=== PATIENT | female | born 1950 | race Caucasian/White ===

== ENCOUNTER → 2020-04-01 15:27 | Emergency (ER) | payer OTHER | END | disposition home or self-care (01) | LOC: EDSTATUS 09:31 → EDUNIT# 15:27 → JP.ED 15:27 | DX: Z53.8 Procedure and treatment not carried out for other reasons (principal) ==

== ENCOUNTER 2020-04-01 15:40 | Emergency (ER) | payer OTHER, MEDICARE ==
[2020-04-01] MEDS ORDERED: Ketorolac 60 MG/2 ML SDV ONE (17:24)
--- NOTE | 2020-04-01 23:37 | CRLCR ---
Final Report: HISTORY: Fall. TECHNIQUE: Left humerus 2 views. COMPARISON: None. FINDINGS: No fracture. 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 Acromioclavicular alignment is maintained. Elbow joint spaces are maintained. IMPRESSION: No acute findings. Dictated by Stan Reyes MD @ Apr 01 2020 5:05PM (Electronic Signature) MTDD
== END 2020-04-01 21:18 | disposition home or self-care (01) ==
LOC: JP.ED 19:46
DX: S43.402A Unspecified sprain of left shoulder joint, initial encounter (principal); W00.0XXA Fall on same level due to ice and snow, initial encounter; Y92.009 Unspecified place in unspecified non-institutional (private) residence as the place of occurrence of the external cause
CPT/HCPCS: 73060-LT; 99283-25

== ENCOUNTER 2024-09-19 10:36 | Emergency (ER) | payer MEDICARE, OTHER ==
[2024-09-19] MEDS: Na Phos,M-B/Na Phos,DI-B 60 ML, Mineral Oil 50 ML, Docusate Sodium 400 MG, Magnesium Ci... RECTAL ONE (12:28)
== END 2024-09-19 13:16 | disposition home or self-care (01) ==
LOC: JP.ED 10:36
DX: K59.00 Constipation, unspecified (principal); Z88.1 Allergy status to other antibiotic agents; Z88.2 Allergy status to sulfonamides; Z88.0 Allergy status to penicillin
CPT/HCPCS: 99283

== ENCOUNTER 2025-07-17 10:01 | Emergency (ER) | payer MEDICARE ==
[2025-07-17] MEDS: Sodium Phosphate,Monobasic/Sodium Phosphate,Dibasic Enema 133 ML Bottle RECTAL ONE (11:13)
[2025-07-17] MEDS ORDERED: Na Phos,M-B/Na Phos,DI-B 60 ML, Mineral Oil 50 ML, Docusate Sodium 400 MG, Magnesium Ci... RECTAL ONE (12:33)
[2025-07-17] MEDS: Na Phos,M-B/Na Phos,DI-B 60 ML, Mineral Oil 50 ML, Docusate Sodium 400 MG, Magnesium Ci... RECTAL ONE (12:57)
== END 2025-07-17 13:17 | disposition home or self-care (01) ==
LOC: JP.ED 10:01
DX: K59.00 Constipation, unspecified (principal); I10 Essential (primary) hypertension; E78.00 Pure hypercholesterolemia, unspecified; Z79.899 Other long term (current) drug therapy; Z88.1 Allergy status to other antibiotic agents; Z88.2 Allergy status to sulfonamides; Z88.8 Allergy status to other drugs, medicaments and biological substances
CPT/HCPCS: 99283; A9270